=== PATIENT | male | born 1955 | race Caucasian/White ===

== ENCOUNTER 2019-04-21 20:06 | Emergency (ER) | payer OTHER ==
[~2019-04-21] VITALS: Ht 172.7 cm; Wt 93.0 kg
[2019-04-21] MEDS ORDERED: HYDROCODONE/APAP 10-325 MG TABLET PO ONE (20:30)
[2019-04-21] MEDS ORDERED: ONDANSETRON ODT 4 MG TAB.RAPDIS SL ONE (20:30)
[2019-04-21] MEDS ORDERED: HYDROMORPHONE 1 MG/1 ML DISP.SYRIN IM ONE (20:30)
[2019-04-21] MEDS ORDERED: ONDANSETRON ODT 4 MG TAB.RAPDIS ONE (20:37)
[2019-04-21] MEDS ORDERED: HYDROCODONE/APAP 10-325 MG TABLET ONE (20:37)
--- NOTE | 2019-04-21 20:46 | NUR ---
Patient discharged to home in stable conditon. Written and verbal after care instructions given. Patient verbalizes understanding of instructions. AMBULATORY W/ STABLE GAIT ALL BELONGINGS W/ PT
[2019-04-21 20:47] VITALS: BP 118/74
== END 2019-04-21 20:48 | disposition home or self-care (01) ==
LOC: ER 20:11
DX: S80.11XA Contusion of right lower leg, initial encounter (principal); W51.XXXA Accidental striking against or bumped into by another person, initial encounter; Y93.89 Activity, other specified; Y92.89 Other specified places as the place of occurrence of the external cause; Y99.8 Other external cause status
CPT/HCPCS: A4663; Q0162

== ENCOUNTER 2019-04-22 12:15 | Emergency (ER) | payer OTHER ==
[~2019-04-22] VITALS: Ht 172.7 cm; Wt 93.0 kg
[2019-04-22] MEDS ORDERED: IV NORMAL SALINE 1000 ML BAG IV ONE (13:30)
--- NOTE | 2019-04-22 13:31 | NUR ---
Pt out of ER for CT.
--- NOTE | 2019-04-22 13:54 | NUR ---
Patient does not wish to proceed with medical care recommended by Dr. Bal). Patient given information related to possible complications, up to and including , which could occur as a result of leaving the hospital at this time. Patient verbalizes understanding of risks involved due to leaving against medical advice. Patient has signed AMA form.
[2019-04-22 13:56] VITALS: BP 136/84
== END 2019-04-22 14:01 | disposition left against medical advice (07) ==
LOC: ER 12:15
DX: M79.661 Pain in right lower leg (principal); R51 Headache
CPT/HCPCS: 70450; 93005; A4663

== ENCOUNTER 2019-04-25 16:29 | Emergency (ER) | payer OTHER ==
[~2019-04-25] VITALS: Ht 182.9 cm; Wt 92.1 kg
[2019-04-25] MEDS ORDERED: ACETAMINOPHEN ES 500 MG TABLET ONE (16:54)
[2019-04-25] MEDS ORDERED: ACETAMINOPHEN ES 500 MG TABLET PO ONE (17:00)
--- NOTE | 2019-04-25 17:02 | NUR ---
Patient discharged to home in stable conditon. Written and verbal after care instructions given. Patient verbalizes understanding of instructions.pt refuses to be homeless. pt lives in a house.
== END 2019-04-25 17:30 | disposition home or self-care (01) ==
LOC: ER 16:30
DX: G89.29 Other chronic pain (principal); M79.661 Pain in right lower leg
CPT/HCPCS: A4663; A9150

== ENCOUNTER 2020-01-21 14:15 | Emergency (ER) | payer OTHER ==
[~2020-01-21] VITALS: Ht 182.9 cm; Wt 77.1 kg
[2020-01-21] MEDS ORDERED: LORAZEPAM 0.5 MG TABLET PO ONE (14:30)
[2020-01-21] MEDS ORDERED: LORAZEPAM 1 MG TABLET ONE (14:34)
[2020-01-21 14:54] LABS: BASOPHILS # (AUTO) 0.1 K/uL (0.0-8.0); BASOPHILS % (AUTO) 1.5 % (0.0-2.0); EOSINOPHILS % (AUTO) 0.5 % (0.0-7.0); HEMATOCRIT 37.8 % (36.7-47.1); HEMOGLOBIN 12.7 g/dL (12.5-16.3); LYMPHOCYTES # (AUTO) 1.6 K/uL (20.0-40.0); MEAN CORPUSCULAR HEMOGLOBIN 32.2 uug (23.8-33.4); MEAN CORPUSCULAR HGB CONC 34 g/dL (32.5-36.3); MEAN CORPUSCULAR VOLUME 95.9 fL (73.0-96.2); MONOCYTES # (AUTO) 0.6 K/uL (2.0-10.0); NEUTROPHILS # (AUTO) 3.3 K/uL (1.8-8.9); PLATELET COUNT (AUTO) 107 K/uL (152-348); RED BLOOD CELL COUNT(AUTO) 3.94 MIL/uL (4.06-5.63); WHITE BLOOD COUNT (AUTO) 5.6 K/uL (3.6-10.2)
[2020-01-21 15:03] LABS: CREATININE 0.9 mg/dL (0.6-1.3); POTASSIUM 3.4 mmol/L (3.5-5.1)
[2020-01-21 15:09] LABS: BILIRUBIN,DIRECT 0.2 mg/dL (0.0-0.2); BILIRUBIN,TOTAL 0.4 mg/dL (0.2-1.0); TOTAL PROTEIN, SERUM 7.4 g/dL (6.4-8.2)
--- NOTE | 2020-01-21 19:05 | NUR ---
Patient discharged to home in stable condition. Written and verbal after care instructions given. Patient verbalizes understanding of instructions. Stressed follow up or return to ER for worsening s/s.PT DENEIS TO BE HOMELESS, HAS AN ADDRESS TO LIVE. PT WALKS IN STEADY GAIT. AXOX4. PT LEAVES HOSPITAL IN [facility].
[2020-01-21 19:12] VITALS: BP 110/77
== END 2020-01-21 19:13 | disposition home or self-care (01) ==
LOC: MERGE 14:15 → ER 14:15
DX: F10.20 Alcohol dependence, uncomplicated (principal); Y90.8 Blood alcohol level of 240 mg/100 ml or more; F17.200 Nicotine dependence, unspecified, uncomplicated; G89.29 Other chronic pain; M79.604 Pain in right leg; S82.91XS Unspecified fracture of right lower leg, sequela; X58.XXXS Exposure to other specified factors, sequela
CPT/HCPCS: 36415; 85025; A4663; G0480

== ENCOUNTER 2020-01-22 11:11 | Emergency (ER) | payer OTHER ==
[~2020-01-22] VITALS: Ht 182.9 cm; Wt 90.7 kg
--- NOTE | 2020-01-22 11:11 | NUR ---
1st contact with patient: he is AOx4, ZUNIGA, respiration:easy, skin warm & dry. Per [facility] paramedics, this patient is c/o generalized aches after drinking wine today. "Can I have warm milk and warm blankets?" per patient's verbalization, pending MD's evaluation
[2020-01-22] MEDS ORDERED: FAMOTIDINE. 20 MG/2 ML VIAL IV ONE ×2 (11:30→11:46)
[2020-01-22] MEDS ORDERED: IV NORMAL SALINE 1000 ML BAG IV ONE (11:30)
[2020-01-22 11:46] LABS: BASOPHILS # (AUTO) 0.1 K/uL (0.0-8.0); BASOPHILS % (AUTO) 1.2 % (0.0-2.0); EOSINOPHILS % (AUTO) 0.3 % (0.0-7.0); HEMATOCRIT 37.5 % (36.7-47.1); HEMOGLOBIN 12.6 g/dL (12.5-16.3); LYMPHOCYTES # (AUTO) 1.4 K/uL (20.0-40.0); LYMPHOCYTES % (AUTO) 31.8 % (20.5-51.5); MEAN CORPUSCULAR HEMOGLOBIN 32.5 uug (23.8-33.4); MEAN CORPUSCULAR HGB CONC 34 g/dL (32.5-36.3); MEAN CORPUSCULAR VOLUME 96.2 fL (73.0-96.2); MONOCYTES # (AUTO) 0.5 K/uL (2.0-10.0); MONOCYTES % (AUTO) 10.2 % (0.0-11.0); NEUTROPHILS # (AUTO) 2.6 K/uL (1.8-8.9); NEUTROPHILS % (AUTO) 56.5 % (38.5-71.5); PLATELET COUNT (AUTO) 120 K/uL (152-348); WHITE BLOOD COUNT (AUTO) 4.5 K/uL (3.6-10.2)
--- NOTE | 2020-01-22 11:49 | NUR ---
Patient is eating hot lunch tray with good appetite. "Can I have TV?" per patient's verbalization. Bedside TV was turned on.
[2020-01-22 11:52] LABS: CREATININE 0.8 mg/dL (0.6-1.3); POTASSIUM 3.9 mmol/L (3.5-5.1)
[2020-01-22 11:58] LABS: BILIRUBIN,DIRECT 0.2 mg/dL (0.0-0.2); BILIRUBIN,TOTAL 0.5 mg/dL (0.2-1.0); TOTAL PROTEIN, SERUM 7.9 g/dL (6.4-8.2)
--- NOTE | 2020-01-22 11:58 | NUR ---
Patient denies being homeless and gave an address to staff. ER registration staff [facility] notified re: patient's current address.
--- NOTE | 2020-01-22 12:53 | NUR ---
IV removed. Catheter intact and site benign. Pressure and 4x4 gauze applied to site. No bleeding noted. Patient discharged to home by MD. Written and verbal after care instructions given. Patient verbalized understanding & compliance of instructions. Stressed follow up with internal medicine Doctor Amandeep or return to ER for worsening s/s.
== END 2020-01-22 13:35 | disposition home or self-care (01) ==
LOC: ER 11:11
DX: G89.29 Other chronic pain (principal); F10.10 Alcohol abuse, uncomplicated; E87.3 Alkalosis; R79.89 Other specified abnormal findings of blood chemistry; Z59.0 Homelessness
CPT/HCPCS: 36415; 71045; 80048; 80076; 82550; 83690; 85025; 96374; 99284; J3490; A4663

== ENCOUNTER 2022-06-27 22:09 | Emergency (ER) | payer MEDICAID, OTHER ==
[~2022-06-27] VITALS: Ht 182.9 cm; Wt 89.8 kg
--- NOTE | 2022-06-27 22:45 | NUR ---
Dr Rod at bedside MSE in progress
--- NOTE | 2022-06-27 23:06 | NUR ---
Patient taken to CT scan by evie Fuchs
[2022-06-27 23:07] LABS: HEMATOCRIT 41.9 % (36.7-47.1); MEAN CORPUSCULAR HEMOGLOBIN 30.9 uug (23.8-33.4); MEAN CORPUSCULAR VOLUME 94.1 fL (73.0-96.2); PLATELET COUNT (AUTO) 256 K/uL (152-348)
[2022-06-27 23:16] LABS: CARBON DIOXIDE 28 mmol/L (21-32); CHLORIDE 102 mmol/L (98-107); CREATININE 0.6 mg/dL (0.6-1.3); GLUCOSE 94 mg/dL (74-106); POTASSIUM 4.1 mmol/L (3.5-5.1); UREA NITROGEN, BLOOD 16 mg/dL (7-18)
--- NOTE | 2022-06-27 23:19 | NUR ---
patient is back from CT
[2022-06-27 23:30] LABS: ALANINE AMINOTRANSFERASE 67 U/L (16-63); ALKALINE PHOSPHATASE 54 U/L (50-136); ASPARTATE AMINOTRANSFERASE 121 U/L (15-37); BILIRUBIN,DIRECT 0.1 mg/dL (0.0-0.2); BILIRUBIN,TOTAL 0.3 mg/dL (0.2-1.0); TOTAL PROTEIN, SERUM 8.1 g/dL (6.4-8.2)
--- NOTE | 2022-06-28 06:26 | NUR ---
Patient is now awake and alert. Patient stated he still feel dizzy
--- NOTE | 2022-06-28 06:28 | NUR ---
Per Dr Rod, patient will be discharged by Dr Bay.
[2022-06-28] MEDS ORDERED: IV NS 1000 ML 1,000 ML IV ONE ×2 (06:45)
--- NOTE | 2022-06-28 07:06 | NUR ---
Endorsed to Grayson OSMAN
--- NOTE | 2022-06-28 07:33 | NUR ---
assumed patient care 66 years old male biba c/o sob, patient in [facility] resting no acute resp distress color pink, speak in full sentence denies pain.
--- NOTE | 2022-06-28 08:33 | NUR ---
patient condition stable ambulatory with steady gait no cough, sob d/c home with instructions after care reviewed understood left er via self.
== END 2022-06-28 08:46 | disposition home or self-care (01) ==
LOC: ER 22:11
DX: R06.00 Dyspnea, unspecified (principal); F10.129 Alcohol abuse with intoxication, unspecified; M62.82 Rhabdomyolysis; F17.210 Nicotine dependence, cigarettes, uncomplicated; R51.9 Headache, unspecified; M54.2 Cervicalgia; R07.89 Other chest pain; Y90.6 Blood alcohol level of 120-199 mg/100 ml
CPT/HCPCS: 36415; 70450; 71045; 72125; 84484; 85025; 93005; A4663; G0480; J7040

== ENCOUNTER 2023-06-28 18:26 | Emergency (ER) | payer OTHER ==
[~2023-06-28] VITALS: Ht 167.6 cm; Wt 72.6 kg
[2023-06-28 21:07] VITALS: O2SAT 97
[2023-06-28] MEDS: CARBAMAZEPINE 200 MG TABLET PO ONE (21:18)
[2023-06-28] MEDS ORDERED: CARB200T PO (21:18)
[2023-06-28] MEDS ORDERED: MULT-225 PO (21:20)
[2023-06-28] MEDS ORDERED: THIA100T88 PO (21:20)
== END 2023-06-28 21:26 | disposition home or self-care (01) ==
LOC: ER 18:28
DX: F10.139 Alcohol abuse with withdrawal, unspecified (principal); F17.200 Nicotine dependence, unspecified, uncomplicated; Z98.890 Other specified postprocedural states; Z79.899 Other long term (current) drug therapy; Y90.0 Blood alcohol level of less than 20 mg/100 ml
CPT/HCPCS: A4606; A4663

== ENCOUNTER 2024-10-13 21:38 | Emergency (ER) | payer BC, MEDICAID ==
[~2024-10-13] VITALS: Ht 182.9 cm; Wt 90.7 kg
[~2024-10-13 21:38] MED LIST: CARB200T PO; MULT-225 PO; THIA100T88 PO
[2024-10-13 22:17] LABS: PLATELET COUNT (AUTO) 307 K/uL (152-348); RED BLOOD CELL COUNT(AUTO) 4.12 MIL/uL (4.06-5.63); RED CELL DISTRIBUTION WIDTH 14.8 % (12.1-16.2); WHITE BLOOD COUNT (AUTO) 7.8 K/uL (3.6-10.2)
[2024-10-13 22:22] LABS: CREATININE 0.6 mg/dL (0.6-1.3); SODIUM SERUM 141 mmol/L (136-145); UREA NITROGEN, BLOOD 6 mg/dL (7-18)
[2024-10-13 22:27] LABS: ETHANOL 350.0 MG/DL (0-10)
[2024-10-13 22:35] LABS: ASPARTATE AMINOTRANSFERASE 28 U/L (15-37); TOTAL PROTEIN, SERUM 7.1 g/dL (6.4-8.2)
[2024-10-14 10:08] VITALS: BP 131/90; TEMP 98.1; O2SAT 97
== END 2024-10-14 10:10 | disposition home or self-care (01) ==
LOC: ER 21:38
DX: R41.82 Altered mental status, unspecified (principal); F10.129 Alcohol abuse with intoxication, unspecified; M25.561 Pain in right knee; F17.200 Nicotine dependence, unspecified, uncomplicated; Z88.7 Allergy status to serum and vaccine; Z60.2 Problems related to living alone; Y90.8 Blood alcohol level of 240 mg/100 ml or more
CPT/HCPCS: 36415; 73560; 85025; A4606; A4663; G0480

== ENCOUNTER 2024-10-15 19:36 | Emergency (ER) | payer BC, MEDICAID ==
[~2024-10-15] VITALS: Ht 182.9 cm; Wt 90.7 kg
[2024-10-15 20:41] LABS: ETHANOL 316.0 MG/DL (0-10)
[2024-10-15] MEDS ORDERED: HYDROCODONE/APAP 5-325MG TABLET ONE (21:03)
[2024-10-15] MEDS: HYDROCODONE/APAP 5-325MG TABLET PO ONE (21:04)
[2024-10-16 13:34] VITALS: BP 134/64; TEMP 97.6; O2SAT 100
== END 2024-10-16 13:37 | disposition home or self-care (01) ==
LOC: ER 19:40
DX: F10.129 Alcohol abuse with intoxication, unspecified (principal); G89.29 Other chronic pain; M79.604 Pain in right leg; F17.200 Nicotine dependence, unspecified, uncomplicated; Z88.7 Allergy status to serum and vaccine; Z60.2 Problems related to living alone; Y90.8 Blood alcohol level of 240 mg/100 ml or more
CPT/HCPCS: 36415; A4606; A4663; G0480